=== PATIENT | male | born 1990 | race Hispanic/Latino ===

== ENCOUNTER 2017-05-09 02:19 | Emergency (ER) | payer SELFPAY ==
[2017-05-09] MEDS ORDERED: IOPAMIDOL-370 75 ML VIAL IV ONE (02:25)
[2017-05-09] MEDS ORDERED: SODIUM CHLORIDE 0.9% 1000ML 1,000 ML IV ONE (02:35)
[2017-05-09] MEDS ORDERED: ONDANSETRON ODT 4 MG TAB ONE (02:35)
[2017-05-09 02:36] LABS: BASOPHILS % (AUTO) 1.1 % (0.0-5.0); EOSINOPHILS % (AUTO) 2.6 % (0.0-8.0); HEMATOCRIT 52.8 % (42-54); LYMPHOCYTES % (AUTO) 37.5 % (21.0-51.0); MEAN CORPUSCULAR HGB CONC 34.8 g/dL (32.0-36.0); MEAN CORPUSCULAR VOLUME 83.4 fL (79-99); MONOCYTES % (AUTO) 8.4 % (3.0-13.0); NEUTROPHILS % (AUTO) 50.4 % (40.0-77.0); NUCLEATED RED BLOOD CELLS 0.4 % (0.0-0.19); PLATELET COUNT (AUTO) 419 K/uL (130-400); RED BLOOD CELL COUNT(AUTO) 6.33 MIL/uL (4.50-6.20); RED CELL DISTRIBUTION WIDTH 13.2 % (11.0-15.5); WHITE BLOOD COUNT (AUTO) 11.7 K/uL (4.8-10.8)
[2017-05-09 02:37] LABS: APPEARANCE,URINE Clear (CLEAR); BILIRUBIN,URINE Negative (NEGATIVE); COLOR,URINE Yellow (YELLOW); GLUCOSE, URINE (UA) Negative (NEGATIVE); KETONES,URINE Negative (NEGATIVE); LEUKOCYTE ESTERASE ,URINE Negative (NEGATIVE); NITRATE,URINE Negative (NEGATIVE); OCCULT BLOOD,URINE Negative (NEGATIVE); PH,URINE 5.5 (5.0-8.0); PROTEIN,URINE Negative (NEGATIVE)
[2017-05-09] MEDS ORDERED: FENTANYL CITRATE PF 50 MCG/1 ML 2ML VIAL ONE (02:37)
[2017-05-09 02:46] LABS: CREATININE 1.4 mg/dL (0.5-1.5); POTASSIUM 3.8 mmol/L (3.5-5.1)
[2017-05-09 02:50] LABS: ALBUMIN 3.5 g/dL (3.5-5.0)
[2017-05-09 02:53] LABS: BILIRUBIN,TOTAL 0.5 mg/dL (0.2-1.0)
[2017-05-09 03:09] LABS: TOTAL PROTEIN, SERUM 6.3 g/dL (6.0-8.3)
[2017-05-09] MEDS ORDERED: FAMOTIDINE/PF 20 MG/2 ML VIAL IV ONE (04:32)
== END 2017-05-09 04:56 | disposition home or self-care (01) ==
LOC: EDH 02:19
DX: K29.70 Gastritis, unspecified, without bleeding (principal); Z91.041 Radiographic dye allergy status
CPT/HCPCS: 36415; 74176; 80053; 81003; 82550; 83690; 84484; 85025; 93005; 96361; 96374; 96375; 99285; J3010; J3490; J7030; Q9967